=== PATIENT | female | born 1930 | race Caucasian/White ===

== ENCOUNTER 2018-09-02 20:01 | Inpatient (IN) | payer MEDICARE, BC ==
[~2018-09-02] VITALS: Ht 152.4 cm; Wt 66.9 kg
--- NOTE | 2018-09-02 20:20 | NUR ---
PT TRANSFERRED HERE FOR GLF FALL AT HOME. PT HAS PAIN TO RIGHT HIP. 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 VSS BUT O2 LOW. PT PLACED ON 2 L O2. O2 SATS NOW 96. PT HAS PAIN WITH MOVEMENT. PT TO XRAY
[2018-09-02] MEDS ORDERED: GABA300C10 PO (20:37)
[2018-09-02] MEDS ORDERED: TRAM50TA2 PO (20:37)
[2018-09-02] MEDS ORDERED: LISI-170 PO (20:37)
--- NOTE | 2018-09-02 21:08 | NUR ---
PT RESTING. VSS. PTS LAST MEAL WAS MILKSHAKE AROUND NOON. CALL LIGHT IN REACH
[2018-09-02 21:12] LABS: MEAN CORPUSCULAR HGB CONC 31.7 g/dL (32.4-35.8); MEAN CORPUSCULAR VOLUME 85.1 fL (80-100); MEAN PLATELET VOLUME 9.1 fL (7.4-10.4); PLATELET COUNT 215 x10^3/uL (130-400); RED BLOOD COUNT 5.71 x10^6/uL (3.82-5.3); RED CELL DISTRIBUTION WIDTH 16.5 % (9.6-15.2)
[2018-09-02 21:16] LABS: ALBUMIN 3.4 g/dL (3.4-5.0); ANION GAP 6 mmol/L (5-15); CALCIUM 8.8 mg/dL (8.5-10.1); CHLORIDE 104 mmol/L (98-107); CREATININE 1.41 mg/dL (0.55-1.02)
[2018-09-02 21:27] LABS: INTERNATIONAL NORMALIZED RATIO 1.1 (0.93-1.1); PROTHROMBIN TIME 11.5 Seconds (9.6-11.5)
[2018-09-02 21:28] LABS: BASOPHILS # (AUTO) 0.01 x10^3/uL (0-0.1); BASOPHILS % (AUTO) 0 % (0-1); EOSINOPHILS % (AUTO) 1 % (1-7); LYMPHOCYTES % (AUTO) 8 % (22-44); MD SCAN; MONOCYTES # (AUTO) 0.37 x10^3/uL (0.2-0.8); MONOCYTES % (AUTO) 4 % (2-9); NEUTROPHILS # (AUTO) 7.45 x10^3/uL (1.8-6.8); NEUTROPHILS % (AUTO) 86 % (42-75)
[2018-09-02] MEDS ORDERED: POLYETHYLENE GLYCOL 17 GM PACKET PO PRN (22:00)
[2018-09-02] MEDS ORDERED: ONDANSETRON 2MG/ML, 2ML IVPush PRN (22:00)
[2018-09-02] MEDS ORDERED: BISACODYL 10 MG SUPP PR PRN (22:00)
--- NOTE | 2018-09-02 22:04 | NUR ---
pt to [place]. Report to jaylan LAWSON
[2018-09-02 23:26] VITALS: BP 152/78
[2018-09-03 01:12] VITALS: BP 157/68
[2018-09-03] MEDS ORDERED: OXYcodone IR 5MG TABLET ONE (01:37)
[2018-09-03] MEDS: OXYcodone IR 5MG TABLET PO PRN ×4 (01:39→21:01)
[2018-09-03] MEDS: SODIUM CHLORIDE 0.9% 1,000 ML IV SCH ×2 (02:15→11:23)
[2018-09-03] MEDS: morphine SULFATE 10 MG/ML, 1ML IVPush PRN ×3 (05:39→10:33)
[2018-09-03 05:46] LABS: MEAN CORPUSCULAR HEMOGLOBIN 26.6 pg (27.0-34.8); MEAN CORPUSCULAR HGB CONC 31.2 g/dL (32.4-35.8); MEAN CORPUSCULAR VOLUME 85.4 fL (80-100); MEAN PLATELET VOLUME 8.9 fL (7.4-10.4); PLATELET COUNT 224 x10^3/uL (130-400)
[2018-09-03 05:57] LABS: ALANINE AMINOTRANSFERASE 17 U/L (12-78); ANION GAP 5 mmol/L (5-15); CALCIUM 8.7 mg/dL (8.5-10.1); CHLORIDE 106 mmol/L (98-107)
[2018-09-03 06:00] LABS: ALKALINE PHOSPHATASE 149 U/L (45-117); BILIRUBIN,TOTAL 0.7 mg/dL (0.2-1.0); CREATININE 1.19 mg/dL (0.55-1.02)
[2018-09-03 06:02] LABS: BASOPHILS # (AUTO) 0.02 x10^3/uL (0-0.1); BASOPHILS % (AUTO) 0 % (0-1); EOSINOPHILS # (AUTO) 0.22 x10^3/uL (0-0.4); EOSINOPHILS % (AUTO) 3 % (1-7); LYMPHOCYTES % (AUTO) 16 % (22-44); MD SCAN; MONOCYTES # (AUTO) 0.55 x10^3/uL (0.2-0.8); MONOCYTES % (AUTO) 7 % (2-9); NEUTROPHILS # (AUTO) 6.01 x10^3/uL (1.8-6.8); NEUTROPHILS % (AUTO) 74 % (42-75)
[2018-09-03] MEDS: SENNA/DOCUSATE TABLET PO SCH (07:40)
[2018-09-03] MEDS: GABAPENTIN 300 MG CAPSULE PO SCH ×4 (07:40→21:01)
[2018-09-03] MEDS: LISINOPRIL 20 MG TABLET PO SCH (07:41)
[2018-09-03 07:47] VITALS: BP 162/78
[2018-09-03] MEDS: ACETAMINOPHEN 325 MG TABLET PO PRN (10:33)
[2018-09-03] MEDS: METHOCARBAMOL 500 MG TABLET PO PRN (10:33)
[2018-09-03] MEDS ORDERED: PROPOFOL 10 MG/ML, 20ML ONE (10:47)
[2018-09-03] MEDS ORDERED: DEXAMETHASONE 4 MG/ML, 1ML ONE (10:47)
[2018-09-03] MEDS ORDERED: CEFAZOLIN 1,000 MG ONE (10:47)
[2018-09-03] MEDS ORDERED: ROCURONIUM 10MG/ML,5ML ONE (10:47)
[2018-09-03] MEDS ORDERED: SUCCINYLCHOLINE 20 MG/ML, 10ML ONE (10:47)
[2018-09-03] MEDS ORDERED: ONDANSETRON 2MG/ML, 2ML ONE (10:47)
[2018-09-03] MEDS ORDERED: LOSA25TA25 PO (11:44)
[2018-09-03 12:57] VITALS: BP 134/74
[2018-09-03] MEDS ORDERED: MIDAZOLAM 1 MG/ML, 2ML ONE (14:00)
[2018-09-03] MEDS ORDERED: FENTANYL PF 250 MCG/5ML ONE (14:01)
[2018-09-03] MEDS ORDERED: TRANEXAMIC ACID 100 MG/ML, 10ML ONE (14:05)
[2018-09-03] MEDS ORDERED: METOPROLOL 1 MG/ML, 5ML IV PRN (14:30)
[2018-09-03] MEDS ORDERED: MEPERIDINE/PF 25MG/0.5ML IVPush PRN (14:30)
[2018-09-03] MEDS ORDERED: PROMETHAZINE 25 MG/ML, 1ML IV PRN (14:30)
[2018-09-03] MEDS ORDERED: LABETALOL 5MG/ML, 20ML IV PRN (14:30)
[2018-09-03] MEDS ORDERED: DIPHENHYDRAMINE 50 MG/ML, 1ML IVPush PRN (14:30)
[2018-09-03] MEDS ORDERED: HALOPERIDOL 5 MG/ML IV PRN (14:30)
[2018-09-03] MEDS ORDERED: hydrALAzine 20 MG/ML, 1ML IV PRN (14:30)
[2018-09-03] MEDS ORDERED: PROCHLORPERAZINE 5 MG/ML, 2ML IV PRN (14:30)
[2018-09-03] MEDS ORDERED: OXYcodone 5 MG/5 ML ORAL.SOL UDC ONE ×2 (15:47→16:16)
[2018-09-03] MEDS ORDERED: HYDROmorphone 2 MG/ML, 1ML ONE (15:47)
[2018-09-03] MEDS ORDERED: FENTANYL PF 100 MCG/2ML ONE (15:47)
[2018-09-03] MEDS: HYDROmorphone 2 MG/ML, 1ML IVPush PRN ×3 (15:51→16:25)
[2018-09-03] MEDS: OXYcodone 5 MG/5 ML ORAL.SOL UDC PO PRN ×2 (16:01→16:16)
[2018-09-03] MEDS: FENTANYL PF 100 MCG/2ML IV PRN ×4 (16:02→16:41)
[2018-09-03] MEDS ORDERED: METOPROLOL 1 MG/ML, 5ML ONE (16:11)
[2018-09-03] MEDS ORDERED: hydrALAzine 20 MG/ML, 1ML ONE (16:33)
[2018-09-03 19:29] VITALS: BP 130/67
[2018-09-03] MEDS: CEFAZOLIN PMX 1GM/50ML 50 ML IV SCH (22:55)
[2018-09-04 00:38] VITALS: BP 129/75
[2018-09-04] MEDS: OXYcodone IR 5MG TABLET PO PRN ×3 (01:16→10:33)
[2018-09-04] MEDS: SODIUM CHLORIDE 0.9% 1,000 ML IV SCH (02:54)
[2018-09-04] MEDS: METHOCARBAMOL 500 MG TABLET PO PRN (05:58)
[2018-09-04] MEDS: CEFAZOLIN PMX 1GM/50ML 50 ML IV SCH (05:59)
[2018-09-04] MEDS: GABAPENTIN 300 MG CAPSULE PO SCH ×3 (08:01→21:32)
[2018-09-04] MEDS: SENNA/DOCUSATE TABLET PO SCH (08:01)
[2018-09-04] MEDS: LISINOPRIL 20 MG TABLET PO SCH (08:02)
[2018-09-04] MEDS: ASPIRIN 81 MG TABLET EC PO SCH ×2 (08:02→21:32)
[2018-09-04 08:08] VITALS: BP 114/63
[2018-09-04] MEDS: ACETAMINOPHEN 325 MG TABLET PO PRN (10:33)
[2018-09-04] MEDS ORDERED: IBUPROFEN 200 MG TABLET PO ONE (11:30)
[2018-09-04] MEDS: LACTATED RINGERS 1,000 ML IV SCH (11:49)
[2018-09-04 13:53] VITALS: BP 125/72
[2018-09-04 19:59] VITALS: BP 148/75
[2018-09-05] MEDS: METHOCARBAMOL 500 MG TABLET PO PRN (00:40)
[2018-09-05] MEDS: LACTATED RINGERS 1,000 ML IV SCH ×2 (00:41→14:10)
[2018-09-05 01:08] VITALS: BP 141/78
[2018-09-05 05:57] LABS: BASOPHILS # (AUTO) 0.03 x10^3/uL (0-0.1); BASOPHILS % (AUTO) 0 % (0-1); EOSINOPHILS % (AUTO) 1 % (1-7); LYMPHOCYTES % (AUTO) 7 % (22-44); MD NO; MEAN CORPUSCULAR HGB CONC 31.9 g/dL (32.4-35.8); MEAN CORPUSCULAR VOLUME 84.6 fL (80-100); MEAN PLATELET VOLUME 8.8 fL (7.4-10.4); MONOCYTES # (AUTO) 0.49 x10^3/uL (0.2-0.8); MONOCYTES % (AUTO) 5 % (2-9); NEUTROPHILS # (AUTO) 8.78 x10^3/uL (1.8-6.8); NEUTROPHILS % (AUTO) 87 % (42-75); PLATELET COUNT 215 x10^3/uL (130-400); RED BLOOD COUNT 4.56 x10^6/uL (3.82-5.3); RED CELL DISTRIBUTION WIDTH 17.2 % (9.6-15.2)
[2018-09-05 06:27] LABS: CHLORIDE 109 mmol/L (98-107)
[2018-09-05 06:49] LABS: ANION GAP 6 mmol/L (5-15); CALCIUM 8.2 mg/dL (8.5-10.1); CREATININE 0.89 mg/dL (0.55-1.02)
[2018-09-05 07:35] VITALS: BP 111/67
[2018-09-05] MEDS: LISINOPRIL 20 MG TABLET PO SCH (08:06)
[2018-09-05] MEDS: GABAPENTIN 300 MG CAPSULE PO SCH ×3 (08:06→21:35)
[2018-09-05] MEDS: ASPIRIN 81 MG TABLET EC PO SCH ×2 (08:06→21:35)
[2018-09-05] MEDS: SENNA/DOCUSATE TABLET PO SCH (08:06)
[2018-09-05] MEDS: OXYcodone IR 5MG TABLET PO PRN ×3 (08:08→21:37)
[2018-09-05 14:25] VITALS: BP 116/62
[2018-09-05 20:15] VITALS: BP 108/53
[2018-09-06 02:25] VITALS: BP 131/65
[2018-09-06] MEDS: LACTATED RINGERS 1,000 ML IV SCH ×2 (02:39→13:26)
[2018-09-06 06:00] LABS: BASOPHILS % (AUTO) 0 % (0-1); EOSINOPHILS % (AUTO) 2 % (1-7); LYMPHOCYTES # (AUTO) 1.15 x10^3/uL (1-3.4); LYMPHOCYTES % (AUTO) 13 % (22-44); MD NO; MEAN CORPUSCULAR HEMOGLOBIN 26.5 pg (27.0-34.8); MEAN CORPUSCULAR HGB CONC 31.2 g/dL (32.4-35.8); MEAN CORPUSCULAR VOLUME 84.8 fL (80-100); MEAN PLATELET VOLUME 9.1 fL (7.4-10.4); MONOCYTES # (AUTO) 0.75 x10^3/uL (0.2-0.8); MONOCYTES % (AUTO) 8 % (2-9); NEUTROPHILS # (AUTO) 6.88 x10^3/uL (1.8-6.8); NEUTROPHILS % (AUTO) 77 % (42-75); PLATELET COUNT 210 x10^3/uL (130-400); RED BLOOD COUNT 4.44 x10^6/uL (3.82-5.3); RED CELL DISTRIBUTION WIDTH 17.1 % (9.6-15.2)
[2018-09-06 06:13] LABS: ANION GAP 4 mmol/L (5-15); CALCIUM 8.2 mg/dL (8.5-10.1); CHLORIDE 109 mmol/L (98-107); CREATININE 0.87 mg/dL (0.55-1.02)
[2018-09-06 08:47] VITALS: BP 131/71
[2018-09-06] MEDS: OXYcodone IR 5MG TABLET PO PRN (08:47)
[2018-09-06] MEDS: ASPIRIN 81 MG TABLET EC PO SCH ×2 (08:47→20:45)
[2018-09-06] MEDS: SENNA/DOCUSATE TABLET PO SCH (08:47)
[2018-09-06] MEDS: GABAPENTIN 300 MG CAPSULE PO SCH ×3 (08:47→20:45)
[2018-09-06] MEDS: LISINOPRIL 20 MG TABLET PO SCH (08:47)
[2018-09-06] MEDS: METHOCARBAMOL 500 MG TABLET PO PRN (10:24)
[2018-09-06] MEDS ORDERED: ASPI81TA45 PO (14:44)
[2018-09-06 15:20] VITALS: BP 113/62
[2018-09-06 18:11] LABS: CULTURE INDICATED? YES; MICROSCOPIC INDICATED
[2018-09-06] MEDS ORDERED: CEFTRIAXONE PMX 1GM/50ML 50 ML IV SCH (18:30)
[2018-09-06 20:31] VITALS: BP 142/80
[2018-09-07 01:43] VITALS: BP 148/69
[2018-09-07] MEDS: LACTATED RINGERS 1,000 ML IV SCH (02:55)
[2018-09-07 07:25] VITALS: BP 129/71
[2018-09-07] MEDS: GABAPENTIN 300 MG CAPSULE PO SCH (09:18)
[2018-09-07] MEDS: SENNA/DOCUSATE TABLET PO SCH (09:19)
[2018-09-07] MEDS: ASPIRIN 81 MG TABLET EC PO SCH (09:19)
[2018-09-07] MEDS: LISINOPRIL 20 MG TABLET PO SCH (09:19)
== END 2018-09-07 15:07 | DRG 469 ==
LOC: ED 21:34 → EDIP 21:40 → 4NOR 22:18
PROVIDERS: ADMIT Family Medicine; ATTEND Family Medicine
PROC: 0SRR0JA Replacement of Right Hip Joint, Femoral Surface with Synthetic Substitute, Uncemented, Open Approach (ICD-10-PCS; principal; 2018-09-03 14:30)
DX: S72.011A Unspecified intracapsular fracture of right femur, initial encounter for closed fracture (principal); N17.0 Acute kidney failure with tubular necrosis; N39.0 Urinary tract infection, site not specified; E86.0 Dehydration; G62.9 Polyneuropathy, unspecified; I12.9 Hypertensive chronic kidney disease with stage 1 through stage 4 chronic kidney disease, or unspecified chronic kidney disease; R50.82 Postprocedural fever; N18.3 Chronic kidney disease, stage 3 (moderate); W01.0XXA Fall on same level from slipping, tripping and stumbling without subsequent striking against object, initial encounter; Z90.710 Acquired absence of both cervix and uterus; Z79.899 Other long term (current) drug therapy; Z79.82 Long term (current) use of aspirin; Z79.1 Long term (current) use of non-steroidal anti-inflammatories (NSAID); Z88.2 Allergy status to sulfonamides; Z88.8 Allergy status to other drugs, medicaments and biological substances; Y93.89 Activity, other specified; Y92.89 Other specified places as the place of occurrence of the external cause; Y99.8 Other external cause status
CPT/HCPCS: 36415; 71045; 72170; 72192; 80048; 80053; 81001; 82040; 85025; 85610; 85730; 87086; 93005; 93970; 99285; G0378; J0690; J0696; J1100; J1170; J2250; J2405; J2704; J3010; C1776; J0330; J0360; J2270; J7030; J7120